=== PATIENT | male | born 1960 ===

== ENCOUNTER 2025-06-14 01:16 | Emergency (ER) | payer OTHER, SELFPAY ==
--- NOTE | 2025-06-14 | ECG_ITS ---
Test Reason : sob Blood Pressure : */* mmHG Vent. Rate : 64 BPM Atrial Rate : 64 BPM P-R Int : 188 ms QRS Dur : 156 ms QT Int : 446 ms P-R-T Axes : 57 -2 210 degrees QTcB Int : 460 ms Normal sinus rhythm Left bundle branch block Abnormal ECG No previous ECGs available Referred By: Generic ED Physician Electronically Signed By: PHIL JACOME MD
--- NOTE | ~2025-06-14 | XR_ITS ---
CLINICAL HISTORY: shortness of breath 1 view chest x-ray Comparison: None provided Findings: The lungs are clear. Normal size heart. No acute fracture. IMPRESSION: 1. No acute findings. This document has been electronically signed by: Neeraj Arias MD on 06/14/2025 02:24:53
[2025-06-14 01:19] VITALS: BP 142/87; PULSE 66; RESP 20; TEMP 36.4; O2SAT 95; BMI 30.1
--- NOTE | 2025-06-14 01:40 | PC.NURSE ---
Assumed care of pt, presents with shortness of breath after attempting to be intimate with , pt states that he could not take a full breath while at home, since coming to the ED, symptoms have resolved, denies taking cialis or viagra
--- OUTSIDE RECORDS SUMMARY | 2025-06-14 01:56 | XMS_ITS | Clinical Summary ---
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 Name Role Phone Unavailable Primary Care Provider Unavailabl e Social History Tobacco Use Types Packs/Day Years Used Date Smoking Tobacco: Never Assessed Sex and Gender Information Value Date Recorded Sex Assigned at Not on file Gender Identity Not on file Sexual Orientation Not on file Job Start Date Occupation Industry Not on file Not on file Not on file Plan of Treatment Health Maintenance Due Date Last Done Comments Hepatitis C Screening 1961 COVID-19 Vaccine (#1) 03/12/1962 Depression Screening 1973 Preventative Health Evaluation 1979 DTap / Tdap / Td (1 - Tdap) 1980 Colon Cancer Screening (Colonoscopy) 2006 Shingrix-Zoster Vaccine (1 of 2) 2011 Influenza Vaccine (#1) 2025 RSV Adult > 60+ Yrs or Pregn ant (1 - 1-dose 75+ series) 2036 Hepatitis B Vaccines Aged Out No long er eligible based on patient's age to complete this topic Pneumococcal Vaccine Aged Out No long er eligible based on patient's age to complete this topic RSV Ped < 20 months Aged Out No longe r eligible based on patient's age to complete this topic
--- OUTSIDE RECORDS SUMMARY | 2025-06-14 01:56 | XMS_ITS | Clinical Summary ---
Author Organization [facility] Address [address] [place] [address] Phone Care Team Providers Care [employer] Name Role Phone Balwinder Adame MD Primary Care Provider [phone] Allergies No known active allergies Medications blood pressure monitor (Blood Pressure Kit) kit 1 kit if needed (hypertensi on). 1 each 12/14/2024 Active lisinopriL (PRINIVIL,ZESTRI L) 5 mg tablet TAKE 1 TABLET BY MOUTH EVERY DAY 90 tablet 3 12/18/2024 Active metoprolol succinate (TOPROL-XL) 25 mg 24 hr tablet TAKE 1 TABLET BY MOUTH EVERY DAY 90 tablet 3 12/18/2024 Active atorvastatin (LIPITOR) 40 mg tablet TAKE 1 TABLET BY MOUTH EVERY DAY 90 tablet 2 03/03/2025 Active Active Problems Problem Noted Date Diagnosed Date Cardiomyopathy (CMS/HCC V24, CMS/HCC V28) 2024 HTN (hypertension), benign 12/14/2024 Assessment & Plan (12/14/2024 2:53 PM EDT): Mildly elevated during today's exam with a reading of 140/90. Recheck later on during our office visit did not reveal significant reduction. The patient will continue on his current dose of lisinopril 5 mg metoprolol succinate 25 mg at this time. Educated on the importance of diet lifestyle to help further assist in reducing blood pressure. The patient was encouraged to follow low-salt low-fat diet, make purposeful strides towards weight loss, and engage in routine aerobic exercise as tolerated. I have given the patient a prescription to obtain a blood pressure monitoring kit so that he can further evaluate overall blood pressure control at home once he begins his diet and lifestyle modification. Goal less than 130/80. Orders: ECG 12 lead Other hyperlipidemia 12/14/2024 Assessment & Plan (12/14/2024 2:52 PM EDT): Recent fasting lipid profile favorable on 40 mg of Lipitor. The patient does express interest in trying to come off some medications. Via shared decision making, the patient would like to discontinue his Lipitor and make purposeful strides towards weight loss and continue with diet and lifestyle modification. He will update a fasting lipid profile in about 8 weeks Orders: Lipid panel with reflex to direct LDL; Future Family History Medical History Relation Name Comments Hypertension Mother Relation Name Status Comments Mother Social History Tobacco Use Types Packs/Day Years Used Date Smoking Tobacco: Never Smokeless Tobacco: Never Alcohol Use Standard Drinks/Week Comments Not Currently 0 (1 standard drink = 0.6 oz pur e alcohol) Sex and Gender Information Value Date Recorded Sex Assigned at Not on file Legal Sex Male 4:34 AM EST Gender Identity Not on file Sexual Orientation Not on file Obstetrics History Last Filed Vital Signs Vital Sign Reading Time Taken Comments Blood Pressure 140/90 12/14/2024 1:46 PM EDT Pulse 79 12/14/2024 1:46 PM EDT Temperature - - Respiratory Rate - - Oxygen Saturation 98% 12/14/2024 1:46 PM EDT Inhaled Oxygen Concentration - - Weight 77.6 kg (171 lb) 12/14/2024 1:46 PM EDT Height 160 cm (5' 3 ) 12/14/2024 1:46 PM EDT Body Mass Index 30.29 12/14/2024 1:46 PM EDT Plan of Treatment Health Maintenance Due Date Last Done Comments Colorectal Cancer Screening: Colonoscopy 1961 DTaP,Tdap,and Td Vaccines (1 - Tdap) 1980 Pneumococcal Vaccine: 50+ Years (1 of 1 - PCV) 2011 Zoster Vaccines (1 of 2) 2011 HIV Screening 08/05/2022 Hepatitis C Screening 08/05/2022 Social Influencers of Health Screening 08/05/2022 Depression Screening 08/26/2024 Hypertension/CHF/CAD Annual BMP Blood Test 12/14/2024 03/13/2022 COVID-19 Vaccine (1 - 2023-2 5 season) 2025 Influenza Vaccine (#1) 2025 Cholesterol Screening (Lipid Panel) 12/07/2029 12/07/2024, 03/07/2023 RSV Immunization Adult Patients (1 - 1-dose 75+ series) 2036 HIB Vaccines Aged Out No longer eligi ble based on patient's age to complete this topic HPV Vaccines Aged Out No longer eligi ble based on patient's age to complete this topic Hepatitis A Vaccines Aged Out No long er eligible based on patient's age to complete this topic Hepatitis B Vaccines Aged Out No long er eligible based on patient's age to complete this topic IPV Vaccines Aged Out No longer eligi ble based on patient's age to complete this topic MMR Vaccines Aged Out No longer eligi ble based on patient's age to complete this topic Meningococcal ACWY Vaccine Aged Out N o longer eligible based on patient's age to complete this topic Meningococcal B Vaccine Aged Out No l onger eligible based on patient's age to complete this topic RSV Immunization Patients Under 20 months Aged Out No longer eligible b ased on patient's age to complete this topic Varicella Vaccines Aged Out No longer eligible based on patient's age to complete this topic Procedures Procedure Name Priority Date/Time Associated Diagnosis Comments LIPID PANEL WITH REFLEX TO DIRECT LDL Routine 12/07/2024 11:49 AM EDT Mixed hyperlipidemia ANNUAL BMP BLOOD TEST Routine 03/13/2022 from Last 3 Months or Most Recently Relevant to Health Maintenance Results * Lipid panel with reflex to direct LDL (12/07/2024 11:49 AM EDT) Cholesterol 144 0 - 200 mg/dL LAB CHEMISTRY METHOD 12/07/2024 3:18 PM EDT [facility] Triglycerides 65 0 - 150 mg/dL LAB CHEMISTRY METHOD 12/07/2024 3:18 PM EDT [facility] HDL 55 >=40 mg/dL LAB CHEMISTRY METHOD 12/07/2024 3:18 PM EDT [facility] LDL Calculated 76 0 - 100 mg/dL LAB CHEMISTRY METHOD 12/07/2024 3:18 PM EDT [facility] VLDL Cholesterol Tj 13 mg/dL LAB CHEMISTRY METHOD 12/07/2024 3:18 PM EDT [facility] Non HDL Chol. (LDL+VLDL) 89 <145 mg/dL LAB CHEMISTRY METHOD 12/07/2024 3:18 PM EDT [facility] Chol/HDL Ratio 2.6 0.0 - 4.4 LAB CHEMISTRY METHOD 12/07/2024 3:18 PM EDT [facility] Blood Venous blood specimen / Unknown Venipuncture / Unknown 12/07/2024 11:49 AM EDT 12/07/2024 12:36 PM EDT Adrian Elizalde MD LAB BLOOD ORDERABLES Jenny bonilla Result [facility] [address] [place] [address], * Annual BMP Blood Test (03/13/2022) Annual BMP Blood Test Abstracted Historical Provider HEALTH MAINTENANCE Final Result from Last 3 Months or Most Recently Relevant to Health Maintenance Insurance [facility] Care Teams And 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
[2025-06-14 02:10] LABS: MANUAL DIFF FLAG NO
[2025-06-14 02:11] LABS: Hematocrit 39.2 % (42.0-52.0); Hemoglobin 13.1 g/dl (14.0-18.0); Imm Gran Abs Auto 0.01 X10*3/uL (0.00-0.03); Imm Gran Pct Auto 0.2 % (0.0-0.4); Lymphocytes Absolute Auto 2.1 X10*3/uL (1.2-4.9); Mean Corpuscular HGB Conc 33.4 g/dl (31.0-36.0); Mean Corpuscular Hemoglobin 29.3 pg (27.0-33.0); Mean Corpuscular Volume 87.7 fL (80.0-98.0); NRBC Abs Auto 0.000 X10*3/uL (0.0-0.012); NRBC Pct Auto 0.0 /100WBC (0.0-0.2); Platelet Count 152 X10*3/uL (160-400); Red Blood Count 4.47 X10*6/uL (4.60-5.80); White Blood Count 5.4 X10*3/uL (4.8-10.8)
[2025-06-14 02:27] LABS: D Dimer High Sensitivity < 150 NG/ML
[2025-06-14 02:30] LABS: Alanine Aminotransferase 34 U/L (0-40); Albumin Level 3.8 g/dL (3.5-5.0); Anion Gap 11 (12-20); Aspartate Amino Transferase 23 U/L (5-37); Blood Urea Nitrogen 24 mg/dL (9-16); Calcium 8.9 mg/dL (8.4-10.2); Carbon Dioxide 28 mmol/L (22-29); Chloride 107 mmol/L (96-108); Creatinine Clr Calc Pharmacy 105.2; Estimated Glomerular Filt Rate > 60; Magnesium 2.0 mg/dL (1.6-2.6); Potassium 4.1 mmol/L (3.3-5.1); Sodium 142 mmol/L (135-145); Total Protein 5.9 g/dL (6.5-8.0)
[2025-06-14 02:37] LABS: NT Pro B Type Natriuretic Pept 38.2 pg/mL (<300); Troponin-I High Sensitivity 45.8 ng/L (<3.5-35.0)
[2025-06-14 02:48] LABS: Alkaline Phosphatase 78 U/L (39-117)
--- NOTE | 2025-06-14 02:51 | ED.SOB ---
HPI - SOB/Dyspnea General Chief Complaint: Dyspnea Stated Complaint: SOB Time Seen by Provider: 06/14/25 01:30 Source: patient and family Mode of arrival: ambulatory Limitations: no limitations History of Present Illness ED Provider: Dr. Gema Alonso HPI Narrative: 64-year-old male with a history of hypertension and hyperlipidemia presenting with shortness of breath that began immediately prior to arrival. Patient states that he was ?becoming intimate with his when he developed shortness of breath. States that he did not feel like he was exerting himself much but started to feel extremely short of breath and had to rest. States that rest did not seem to help his shortness of breath either. encouraged him to come to the hospital for evaluation. He had no chest pain during this episode. Denies associated fever or cough. Had been feeling well prior to this. Admits to an upper respiratory infection that occurred about 2 weeks ago but feels that he had fully recovered from that. No history of coronary artery disease, family history of early onset heart disease or sudden cardiac , use of blood thinners, recent travel. Related Data Allergies Allergy/AdvReac Type Severity Reaction Status Date / Time No Known Allergies Allergy Verified 06/14/25 01:21 Review of Systems Review of Systems: as per HPI, full review of systems performed and negative but for the above mentioned pertinent positives and negatives. [facility] Social History Social History Advance Directives: No Advance Directives Information Provided: No Physical Exam Exam: Exam: GENERAL: Well-Appearing, conversant, no acute distress. SKIN: Normal skin color for ethnicity, warm, dry, no rashes noted. HEENT:? Normocephalic, atraumatic, no stridor, posterior oropharynx nonerythematous, dentition intact, EOMI. NECK: Soft, supple, full ROM, midline structures nontender, no step-offs, no deformities, no lymphadenopathy. CHEST: Heart regular rate and rhythm, no murmurs, symmetric chest rise and fall. PULMONARY: Clear to auscultation bilaterally, no labored breathing, no wheezes/rhales/rhonchi. ABDOMINAL: Soft, nondistended, nontender, positive bowel sounds in all quadrants. : Deferred. MUSCULOSKELETAL: Normal tone, full range of motion, no deformities, no peripheral edema. NEURO: Alert and oriented x3, CN II through XII intact, equal strength and sensation bilateral upper and lower extremities, no focal neurologic deficits.? PSYCHIATRIC: Normal affect, fluid speech, good eye contact and appropriate demeanor. Vital Signs: Vital Signs: Last Vital Signs Temp 97.8 F 06/14/25 05:54 Pulse 62 06/14/25 05:54 Resp 15 06/14/25 05:54 BP 137/77 06/14/25 05:54 Pulse Ox 96 06/14/25 05:54 O2 Del Method Room Air 06/14/25 05:54 BMI result Body Mass Index 30.1 Medical Decision Making Medical Decision Making [facility] Narrative: Patient presents today with chief complaint of shortness of breath. Differential diagnosis includes, but is not limited to, upper respiratory infection, pneumonia, COPD exacerbation, asthma exacerbation, CHF, pneumothorax, pleural effusion, pulmonary embolism, ACS. Broad-based work-up will be initiated to evaluate for etiology of patient's symptoms. Patient's workup today has been reassuring. Patient feeling improved. He has no symptoms. Cardiac enzyme is flat. EKG is not ischemic though he does have an old left bundle branch block which he tells me is his baseline. We had an extensive discussion regarding importance of follow up as well as strict return precautions. At this time I see no indication for admission or further evaluation. Encouraged follow up with primary care and cardiology. Discharged in stable condition. Differential Diagnosis Differential Diagnoses: The differential diagnosis associated with the presentation includes (As above) Admission/Observation Consideration of admission/observation: Escalation of care including admission/observation considered Lab Data [facility] Lab Attestation statement: I reviewed the patient's lab results. 06/14/25 02:06 06/14/25 02:06 Labs: Lab Results 06/14/25 06/14/25 Range/Units 02:06 04:34 WBC 5.4 (4.8-10.8) X10*3/uL RBC 4.47 L (4.60-5.80) X10*6/uL Hgb 13.1 L (14.0-18.0) g/dl Hct 39.2 L (42.0-52.0) % MCV 87.7 (80.0-98.0) fL MCH 29.3 (27.0-33.0) pg MCHC 33.4 (31.0-36.0) g/dl RDW 12.7 (11.0-16.0) % Plt Count 152 L (160-400) X10*3/uL MPV 11.2 (9.4-12.4) fL Immature Gran % (Auto) 0.2 (0.0-0.4) % Neut % (Auto) 43.4 L (45-73) % Lymph % (Auto) 39.0 (20-40) % [place] % (Auto) 11.7 H (2-11) % Eos % (Auto) 5.0 H (0-4) % Baso % (Auto) 0.7 (0-2) % Lymph # (Auto) 2.1 (1.2-4.9) X10*3/uL [place] # (Auto) 0.6 (0.1-1.2) X10*3/uL Eos # (Auto) 0.3 (0.0-0.4) X10*3/uL Baso # (Auto) 0.0 (0.0-0.2) X10*3/uL Abs Immat Gran (auto) 0.01 (0.00-0.03) X10*3/uL Absolute Neuts (auto) 2.3 (2.0-8.3) x10*3/uL Absolute Nucleated RBC 0.000 (0.0-0.012) X10*3/uL Nucleated RBC % (auto) 0.0 (0.0-0.2) /100WBC D-Dimer High Sensitivty < 150 NG/ML Sodium 142 (135-145) mmol/L Potassium 4.1 (3.3-5.1) mmol/L Chloride 107 (96-108) mmol/L Carbon Dioxide 28 (22-29) mmol/L Anion Gap 11 L (12-20) BUN 24 H (9-16) mg/dL Creatinine 0.66 (0.5-1.4) mg/dL Estim Creat Clear Calc 105.2 Estimated GFR > 60 Random Glucose 88 (60-115) mg/dL Calcium 8.9 (8.4-10.2) mg/dL Magnesium 2.0 (1.6-2.6) mg/dL Total Bilirubin 0.3 (0.0-1.0) mg/dL AST 23 (5-37) U/L ALT 34 (0-40) U/L Alkaline Phosphatase 78 (39-117) U/L Troponin I High Sens 45.8 H 44.5 H (<3.5-35.0) ng/L NT-Pro-B Natriuret Pep 38.2 (<300) pg/mL Total Protein 5.9 L (6.5-8.0) g/dL Albumin 3.8 (3.5-5.0) g/dL Independent Interpretation I performed an independent interpretation of an: EKG and Plain X-Ray Interpretation: My independent interpretation of the chest x-ray reveals no consolidations, pulmonary edema, pleural effusion, pneumothorax, obvious bony abnormalities. My independent interpretation of the ECG reveals normal sinus rhythm with rate of 64, leftward axis, LBBB, no ST elevations or depressions to suggest ischemic changes, no previous for comparison. Radiology Impression Discussion of test interpretation with radiology: I have reviewed the radiologist's reading. Independent Historian Clinical information obtained from an independent historian. History obtained from or confirmed by: Spouse Chronic Conditions Patient?s care impacted by: Hypertension Scores Heart Score History: -0- slightly suspicious ECG: -1- non specific repolarization disturbance Age: -1- >45 - <65 Risk factory: -1- 1 or 2 risk factors Troponin: -1- >1 - <3x normal limit Score: 4 Risk: 16.6% Discharge Plan Discharge Clinical Impression: Acute dyspnea Patient Disposition: Home, Self-Care Instructions: Dyspnea (ED) Additional Instructions: DIAGNOSIS & TREATMENT: You were seen in the Emergency Department for your shortness of breath. We performed an EKG, laboratory work and chest xray which did not reveal any acute abnormalities that would explain your symptoms. FURTHER CARE: We have not found any emergent physical exam or lab abnormalities that would require admission to the hospital today. Many people who come to the ER with chest discomfort and shortness of breath do not leave with a specific diagnosis at the end of their visit. In the Emergency Department we try to make sure that there is no emergent problem that needs admission to the hospital or antibiotics right now. This does not mean that your evaluation is complete--please be sure to follow up with your regular doctor and your credit coordinator as additional testing as an outpatient may be indicated. Please be certain to drink plenty of fluids over the next several days. WHEN YOU SHOULD BE SEEN NEXT: Please follow-up with your primary care provider within the next 2-3 days for reevaluation of your symptoms. WHEN TO RETURN TO THE ED: Monitor your symptoms closely and return to the emergency department immediately for any new/worsening symptoms including: Worsening chest pain, difficulty breathing, fevers greater than 100 degrees, passing out, any new symptom that concerns you. Call 911 with any medical emergency. Interventions: ED Discharge Assessment Last Done: 06/14/25 05:54 Discharge Date/Time: 06/14/25 06:00 Print Language: Filipino
[2025-06-14 04:30] VITALS: BP 137/77; PULSE 62; RESP 15; TEMP 36.6; O2SAT 96
[2025-06-14 04:57] LABS: Troponin-I High Sensitivity 44.5 ng/L (<3.5-35.0)
[2025-06-14 05:54] VITALS: BP 137/77; PULSE 62; RESP 15; TEMP 36.6; O2SAT 96
== END 2025-06-14 06:00 | disposition home or self-care (01) ==
PROVIDERS: Emergency Provider Emergency Medicine; PCP Internal Medicine
DX: R06.00 Dyspnea, unspecified (principal); I44.7 Left bundle-branch block, unspecified; R06.02 Shortness of breath
CPT/HCPCS: 36415; 71045; 80053; 83735; 83880; 84484; 85025; 85379; 93005; 99283; 99285

== ENCOUNTER → 2025-06-14 01:24 | Outpatient (BNV) | payer OTHER, SELFPAY | PROVIDERS: Emergency Provider Emergency Medicine; PCP Internal Medicine; Visit Provider Radiology Diagnostic Radiology | DX: R06.02 Shortness of breath (principal) | CPT/HCPCS: 71045 ==

== ENCOUNTER → 2025-06-14 01:33 | Outpatient (BNV) | payer OTHER, SELFPAY | PROVIDERS: Emergency Provider Emergency Medicine; PCP Internal Medicine; Visit Provider Internal Medicine Cardiovascular Disease | DX: I44.7 Left bundle-branch block, unspecified (principal) | CPT/HCPCS: 93010 ==